=== PATIENT | female | born 2000 | race Caucasian/White ===

== ENCOUNTER 2022-11-18 10:21 | Outpatient (CLI) | payer OTHER, SELFPAY ==
[2022-11-18 13:26] LABS: Free T4 Free Thyroxine 1.25 ng/mL (0.78-2.19)
[2022-11-19 00:27] LABS: Hemoglobin A1C 5.6 % (<5.7)
[2022-11-21 12:34] LABS: DHEA-Sulfate 331 mcg/dL (51-321); Insulin Level Total 13.5 uIU/mL (<=19.6)
[2022-11-22 06:07] LABS: Prolactin 8.5 ng/mL (***)
[2022-11-22 13:11] LABS: Testosterone Total 46 ng/dL (2-45)
== END 2022-11-18 10:22 | disposition home or self-care (01) ==
LOC: ANHGOSHLAB 10:29
PROVIDERS: Visit Provider Nurse Practitioner
DX: N92.6 Irregular menstruation, unspecified (principal)
CPT/HCPCS: 36415; 82627; 83036; 83498; 83525; 84146; 84403; 84439; 84443

== ENCOUNTER 2024-01-11 10:05 | Emergency (ER) | payer OTHER, SELFPAY ==
[2024-01-11 10:20] VITALS: BP 140/84; PULSE 96; RESP 18; TEMP 36.7; O2SAT 98
--- NOTE | 2024-01-11 10:46 | ED.URI ---
HPI - URI/Sore Throat General Chief Complaint: Upper Respiratory Infection Stated Complaint: cough work note Time Seen by Provider: 01/11/24 10:46 Source: patient, RN notes reviewed and old records reviewed Mode of arrival: ambulatory Limitations: no limitations History of Present Illness HPI Narrative: 23-year-old female presents to the [facility] with complaints of a cough that started on Friday, 4 days. Has been taking allergy medication as well as Coricidin HBP Patient denies any fevers. Requesting a work note to return Friday Onset (ago): day(s) (4) Treatments prior to arrival: cold medicine Related Data Home Medications Medication Instructions Recorded Confirmed escitalopram oxalate 5 mg tablet 5 mg PO DAILY 01/11/24 01/11/24 norethindrone (contraceptive) 0.35 0.35 mg PO DAILY 01/11/24 01/11/24 mg tablet spironolactone 50 mg tablet 50 mg PO DAILY 01/11/24 01/11/24 Allergies Allergy/AdvReac Type Severity Reaction Status Date / Time No Known Allergies Allergy Verified 01/11/24 10:25 Review of Systems Review of Systems: All systems reviewed & are unremarkable except as noted in HPI and below Constitutional: Constitutional: Reports no additional constitutional complaints Eyes: Eyes: Reports no additional eye complaints ENT: Reports as per HPI and Reports nasal congestion Cardiovascular: Cardiovascular: Reports no additional cardiovascular complaints, Denies chest pain and Denies dyspnea Respiratory: Respiratory: Reports as per HPI, Denies chest congestion, Reports cough and Denies dyspnea Gastrointestinal: Gastrointestinal: Reports no additional gastrointestinal complaints, Denies abdominal pain, Denies nausea and Denies vomiting Musculoskeletal: Musculoskeletal: Reports no additional musculoskeletal complaints Integumentary/Breasts: Skin/Breast: Reports system reviewed and no additional complaints, except as docu Neurologic: Reports system reviewed and no additional complaints, except as documented Psychiatric: Psychiatric: Reports no additional psychiatric complaints Allergic/Immunologic: Allergic/Immunologic: Reports no additional allergic/immunologic complaints PMFSH Comments At the time of my signature, I reviewed and agree with the nursing past medical, surgical, social, and family history. There is no relevant family history pertinent to the patient complaint. Exam Const: General: cooperative, healthy appearing, comfortable, no acute distress, well developed, alert and well nourished Nutritional Appearance: well nourished and obese Orientation/consciousness: patient oriented x3 Limitations: no limitations HENMT: Head: normal to inspection Ears: hearing grossly normal bilaterally, external ears normal, TM's normal bilaterally, EAC's normal, mastoids normal and no periauricular adenopathy Face/Nose/Sinus: Normal external nose present, normal facial exam and face symmetric Face and sinus: normal facial exam and face symmetric Mouth: Yes Normal oral and palatal mucosa present, Yes lip normal and Yes tongue normal Throat: uvula midline, postnasal drainage and no uvular edema Eyes: General: appearance normal, both eyes and all related structures Alignment and Position: alignment normal Periorbital: periorbital findings normal Neck: Neck: normal visual inspection, full ROM, no lymphadenopathy and no meningeal signs Chest: Chest palpation & inspection: normal inspection of the chest Resp: Effort & Inspection: normal respiratory effort and able to speak in complete sentences Auscultation: clear to auscultation bilaterally, no crackles, no rales, no rhonchi and no wheezes Cardio: Rate: regular rate Rhythm: regular rhythm Skin: General skin exam: normal color and no rashes or lesions noted Lesions: no lesions Rashes: no rashes Trauma: no lacerations or abrasions Wounds: no wounds Neuro: General: patient oriented x3, gait normal, tone normal, moves all extremities and no meningeal
[2024-01-11 10:50] LABS: EDCOVIDSCREEN Negative (Negative); EDINFLUASCREEN Negative (Negative); EDINFLUBSCREEN Negative (Negative); EDSTREPNEGPOS1 Negative (Negative)
== END 2024-01-11 10:55 | disposition home or self-care (01) ==
PROVIDERS: Emergency Provider Nurse Practitioner
DX: J06.9 Acute upper respiratory infection, unspecified (principal); Z20.822 Contact with and (suspected) exposure to COVID-19; E28.2 Polycystic ovarian syndrome; F41.9 Anxiety disorder, unspecified
CPT/HCPCS: 87081; 87426; 87804; 87880; 99213; G0463

== ENCOUNTER 2024-01-29 10:47 | Outpatient (CLI) | payer OTHER, SELFPAY ==
[2024-01-29 19:59] LABS: Free T4 Free Thyroxine 1.16 ng/mL (0.78-2.19)
[2024-01-29 20:28] LABS: Thyroid Stimulating Hormone 0.502 uIU/mL (0.465-4.680)
[2024-01-29 21:28] LABS: Hemoglobin A1C 5.7 % (<5.7)
[2024-01-30 11:38] LABS: DHEA-Sulfate 373 mcg/dL (14-349); Prolactin 8.3 ng/mL
[2024-02-04 01:34] LABS: Testosterone Total 30 ng/dL (2-45)
== END 2024-01-29 10:48 | disposition home or self-care (01) ==
PROVIDERS: Visit Provider Nurse Practitioner Women's Health
DX: E28.2 Polycystic ovarian syndrome (principal)
CPT/HCPCS: 36415; 82627; 83036; 83498; 83525; 84146; 84403; 84439; 84443

== ENCOUNTER 2024-06-07 13:24 | Emergency (ER) | payer OTHER, SELFPAY ==
[2024-06-07 13:34] VITALS: BP 149/89; PULSE 90; RESP 18; TEMP 36.6; O2SAT 98
--- NOTE | 2024-06-07 13:34 | ED.URI ---
HPI - URI/Sore Throat General Chief Complaint: Upper Respiratory Infection Stated Complaint: sore throat / dizziness Time Seen by Provider: 06/07/24 13:34 Source: patient Mode of arrival: ambulatory Limitations: no limitations History of Present Illness HPI Narrative: 23-year-old female presents with complaint of cough, chest congestion, fatigue, body aches, chills for 5 days. Patient missed nursing clinicals today due to symptoms. Symptoms are improving. Taking dyfe-tch-itxxyrh medications and cough drops. No chest pain or shortness of breath. All systems reviewed and negative except as noted above. Related Data Home Medications ?Medication ?Instructions ?Recorded ?Confirmed ?Last Taken ?Type norethindrone (contraceptive) 0.35 0.35 mg PO DAILY 01/11/24 05/18/24 Unknown History mg tablet spironolactone 100 mg tablet 100 mg PO DAILY 02/13/24 05/18/24 Unknown History Allergies Allergy/AdvReac Type Severity Reaction Status Date / Time No Known Allergies Allergy Verified 06/07/24 13:32 Review of Systems Review of Systems: CONSTITUTIONAL: Denies fever, chills, or sweats. reports fatigue. EYES: Denies visual changes, redness, or discharge. ENT: Reports rhinorrhea, congestion. Denies sore throat, or otalgia. CARDIOVASCULAR: Denies chest pain, palpitations, or edema. RESPIRATORY: Reports cough. Denies dyspnea. GASTROINTESTINAL: Denies abdominal pain, nausea, vomiting, or diarrhea. GENITOURINARY: Denies dysuria or hematuria. SKIN: Denies rash or itching. MUSCULOSKELETAL: Denies back pain, joint pain, or myalgia. NEUROLOGIC: Denies headache, numbness, or weakness. PSYCHIATRIC: Denies anxiety or depression. All other systems reviewed are negative, except as documented in HPI. FOR[facility]LY [facility], [facility] Past Medical History Medical History (Updated 06/07/24 @ 14:09 by Lucero Mir NP) Migraine headache with aura Histoplasmosis PCOS (polycystic ovarian syndrome) Asthma Anxiety Allergies Family History Family History Mother Depression Anxiety Father Diabetes mellitus Sibling Depression Anxiety Grandparent Diabetes mellitus Heart problem Grandparent Diabetes mellitus Heart problem Social History Social History (Updated 05/03/24 @ 13:19 by Darling Garcia CMA) Smoking status: Never smoker Substance use: never Do You Feel Safe in your Home?: Yes Lack of Transportation: No Lack of Food: Never True Current Housing: I Have Housing Concerned About Future Housing: No Difficulty Paying Gas/Electric Bills: No Difficulty Paying for Meds: YES Currently Unemployed: No Education: High School Diploma/GED Difficulty w/ Childcare or Family Care: No Comments At time of signature, agree with nursing past medical, surgical, social and family history. There is no relevant family history pertinent to the presenting complaint. Exam Narrative: GENERAL: This is a well-nourished, well-developed patient, in no apparent distress. HEAD: normocephalic, atraumatic. EYES: PERRL. Sclera clear/white. Vision is grossly intact. EARS: External ears normal, auditory canals clear and without drainage, TMs normal without perforation. Hearing grossly intact. NOSE: External nose normal with clear nasal drainage, mild congestion THROAT: Mucous membranes moist, mild erythema postnasal drainage. No swelling or exudates. NECK: Neck supple, non-tender without lymphadenopathy, masses or thyromegaly. CARDIOVASCULAR: Regular rate and rhythm without murmurs, gallops, or rubs. RESPIRATORY: Clear to auscultation. Breath sounds equal bilaterally. No wheezes, rales, or rhonchi. SKIN: warm, Dry, intact with no suspicious lesions or rash, good texture and turgor. NEURO: awake, alert, and oriented to person, place and time. There were no obvious focal neurologic abnormalities. EXTREMITIES: No joint tenderness, effusion, or edema noted. Course Course Level of Care: Express Care Visit Vital Signs Vital signs: Reviewed MDM - URI/Sore Throat MDM Narrative Medical decision making narrative: positive COVID. Lungs clear to auscultation. No respiratory distress. Patient is alert, nontoxic. Recommend qraq-xsm-ypoxxci medications to treat viral symptoms. Please be advised this is a medical document. It is intended for ifoc-lq-sbii communication. It is written in medical language and may contain unfamiliar abbreviations or verbiage. Medical documents are intended to carry relevant information, facts as evident, and the clinical opinion of the practitioner at the time of the encounter. This report may have been done utilizing a voice recognition system. Attempts have been made to correct errors. However, there may be uncorrected grammatical, spelling, and recognition errors present. The file time of this note does not necessarily represent the time of service. Differential Diagnosis Differential diagnosis: Likely upper respiratory infection, sinusitis, viral infection and influenza Discharge Plan Discharge Clinical Impression: COVID-19 Patient Disposition: Home, Self-Care Condition: Stable Instructions: COVID-19 (Coronavirus Disease 2019) (ED) Additional Instructions: you were positive for COVID. COVID is a virus and symptoms may last 10-14 days. Take bzrb-aly-aetotdf medications to treat her symptoms such as DayQuil NyQuil cold and flu. Take ibuprofen every 6-8 hours as needed for pain and fever. Drink plenty of water and rest. See your doctor if symptoms are not improving. Patient Language: Tunisian Prescriptions: No Action norethindrone (contraceptive) 0.35 mg tablet 0.35 mg PO DAILY sumatriptan succinate [Imitrex] 50 mg tablet See Rx Instructions PO .COMPLEX Qty: 30 0RF Rx Instructions: Take 1 tablet at onset of headache; if no relief may repeat 1 tab after at least 2 hrs; max = 4 tabs/24 hr by mouth. venlafaxine 75 mg capsule,extended release 24hr 75 mg PO DAILY Qty: 30 2RF spironolactone 100 mg tablet 100 mg PO DAILY Follow-up/Referrals: Lizett Shields DO [Primary Care Provider] - Stand Alone Forms: Work/School Release IP Time of Disposition: 14:09
[2024-06-07 14:04] LABS: EDCOVIDSCREEN Positive (Negative)
[2024-06-07 14:04] LABS: EDSTREPNEGPOS1 Negative (Negative)
[2024-06-07 14:05] LABS: EDINFLUASCREEN Negative (Negative); EDINFLUBSCREEN Negative (Negative); EDSTREPNEGPOS1 Negative (Negative)
== END 2024-06-07 14:11 | disposition home or self-care (01) ==
PROVIDERS: Emergency Provider Nurse Practitioner Family; PCP Family Medicine
DX: U07.1 COVID-19 (principal); E28.2 Polycystic ovarian syndrome; J45.909 Unspecified asthma, uncomplicated
CPT/HCPCS: 87081; 87426; 87804; 87880; 99213; G0463

== ENCOUNTER 2025-02-11 11:39 | Outpatient (CLI) | payer OTHER, SELFPAY ==
--- OUTSIDE RECORDS SUMMARY | 2025-02-11 12:15 | XMS_ITS | Clinical Summary ---
Author Organization [facility] Address [address] [place] [address] Care Team Providers Care Steel Unloader Name Role Phone Dixie Olguin MD Primary Care Provid er Allergies No known active allergies Medications B2-mag citrate,oxide-f everfew (MIGRELIEF) 200-180-50 mg tablet TAKE 1 TWICE DAILY 07/17/2017 Active rizatriptan (MAXALT) 5 mg tablet TK 1 T PO ONCE PRN FOR MIGRAINE MAY REPEAT IN 2 HOURS IF NEEDED 4 10/01/2018 Active cetirizine (ZyrTEC) 10 mg tablet Take 10 mg by mouth daily Active medroxyPROGESTE Meño (Provera) 10 mg tabletIndicatio ns:PCOS (polycystic ovarian syndrome) Take 1 tablet (10 mg total) by mouth daily 10 tablet 2 01/11/2021 Active Active Problems Problem Noted Date Diagnosed Date Insomnia 03/20/2018 Disturbance in sleep behavior 03/04/2018 Tension headache 08/23/2016 History of PCOS 04/10/2016 Migraine without aura and responsive to treatmen t 04/10/2016 Analgesic rebound headache 04/10/2016 Abdominal pain 03/08/2016 Cephalalgia 03/08/2016 Mixed hypercholesterolemia and hypertriglyceride jimmy 03/08/2016 Dyslipidemia 09/09/2015 Childhood obesity 09/09/2015 Immunizations Immunization Administration Dates Next Due Influenza, Quadrivalent, Spl it, Preservative Free, Intramuscular 01/11/2021,04/16/2018 Social History Tobacco Use Types Packs/Day Years Used Date Smoking Tobacco: Never Smokeless Tobacco: Never PHQ-2 Answer Date Recorded PHQ-2 TOTAL SCORE 2 11/02/2020 Personal Safety Answer Date Recorded Getting School Help Needed Not on file 03/22 Comments Unknown Sex and Gender Information Value Date Recorded Sex Assigned at Not on file 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 Gender Identity Not on file Sexual Orientation Not on file Last Filed Vital Signs Vital Sign Reading Time Taken Comments Blood Pressure 128/74 01/11/2021 9:23 AM CDT Pulse 89 01/11/2021 9:23 AM CDT Temperature 36.7 C (98 F) 01/11/2021 9:23 AM CDT Respiratory Rate 20 01/11/2021 9:23 AM CDT Oxygen Saturation 97% 01/11/2021 9:23 AM CDT Inhaled Oxygen Concentration - - Weight 116 kg (255 lb 11.7 oz) 01/11/2021 9:23 A M CDT Height 169.4 cm (5' 6.69) 01/11/2021 9:23 AM CD T Body Mass Index 40.42 01/11/2021 9:23 AM CDT Plan of Treatment Not on file Insurance [facility] MEDICAID Care Teams Steel Unloader Relationship Specialty Start Date End Date Dixie Olguin MD [address] [place] [address] PCP - General 07/17/16
--- OUTSIDE RECORDS SUMMARY | 2025-02-11 12:15 | XMS_ITS | Clinical Summary ---
Author Organization [facility] Address [address] [place] [id number] Care Team Providers Care Payroll Accounting Manager Name Role Phone Dixie Olguin MD Primary Care Provide r Active Problems Problem Noted Date Diagnosed Date Neck pain 02/10/2019 Social History Tobacco Use Types Packs/Day Years Used Date Smoking Tobacco: Never Assessed Comments Unknown Sex and Gender Information Value Date Recorded Sex Assigned at Not on file Legal Sex Female 7:36 PM CDT Gender Identity Not on file Sexual Orientation Not on file Plan of Treatment Health Maintenance Due Date Last Done Comments Cervical Cancer Screening Pa p Smear (Age 21 to 29) Every 3 Years 2001 Cervical Cancer Screening 2001 Annual Physical 2004 HPV Vaccines (1 - 3-dose series) 2016 Meningococcal B Vaccine (1 o f 2 - Standard) 2017 Hepatitis C 08/16/2019 DTaP, Tdap and Td Vaccines ( 1 - Tdap) 2020 Hepatitis B Vaccines (1 of 3 - 19+ 3-dose series) 2020 COVID-19 Vaccine ( - 2024-2 6 season) 2024 Influenza Adult (#1) 2025 Hepatitis A Vaccines Aged Out No long er eligible based on patient's age to complete this topic Meningococcal Vaccine Aged Out No chava rashawn eligible based on patient's age to complete this topic Pneumococcal Vaccine: Pediat rics (0 to 5 Years) and At-Risk Patients (6 to 49 Years) Aged Out No longer eligible b ased on patient's age to complete this topic RSV Immunizations Under 20 Months Aged Out No longer eligible based on patient's age to complete this topic Insurance [employer] Care Teams Payroll Accounting Manager Relationship Specialty Start Date End Date Dixie Olguin MD [address] [place], [place] [address] [place], [place] [id number] PCP - General PEDIATRICS 02/09/19
--- OUTSIDE RECORDS SUMMARY | 2025-02-11 12:15 | XMS_ITS | Encounter Summary ---
Author Organization [facility] Address [address] [place] [address] Phone Care Team Providers Care Boring Mill Operator For Metal Name Role Phone Dixie Olguin MD Primary Care Provid er Encounter Details Date Type Department Care Team (Late st Contact Info) Description 04/03/2018 Telephone [facility] Neuro Sleep [address] [place] [address] 6[address] [place] [address] Ross Munson, [facility] Social History Tobacco Use Types Packs/Day Years Used Date Smoking Tobacco: Never Smokeless Tobacco: Never Comments Unknown Sex and Gender Information Value Date Recorded Sex Assigned at Not on file 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
--- OUTSIDE RECORDS SUMMARY | 2025-02-11 12:15 | XMS_ITS | Clinical Summary ---
Author Organization [facility] Address [address] [place] [address] Care Team Providers Care Creative Services Writer Name Role Phone iDxie Olguin MD Primary Care Provider Source Comments [facility],non-owned Affiliates and Associated Physician Practices is amultiple site organization consisting of ambulatory clinics and hospital sitesin [place], [place], [place] and [place]. This disclosure is being madepursuant to the Care Everywhere program and may not contain all information available regarding this patient. Last updated 17.[facility] Allergies No known active allergies Medications * Be aware that medications may not be up to date on this document. Alwaysverify current medications with the patient. NORLYDA 0.35 MG tablet Take 1 tablet by mouth at bedtime 9 Active loratadine (CLARITIN) 10 MG tablet Take 10 mg by mouth once daily Active multivitamin daily tablet Take 1 tablet by mouth daily with food Active ibuprofen (MOTRIN) 200 MG tabletIndicatio ns:Migraine Take 3 tabs around beginning of migraine and every 6 hours as needed, 3 days per week at most. 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 Gender Identity Not on file Sexual Orientation Not on file Last Filed Vital Signs Vital Sign Reading Time Taken Comments Blood Pressure 100/70 03/10/2019 8:20 AM ELECTRONIC CONSOLE DISPLAY OPERATOR Pulse 80 07/10/2018 12:05 PM CDT per pcp Temperature - - Respiratory Rate - - Oxygen Saturation - - Inhaled Oxygen Concentration - - Weight 109.8 kg (242 lb 1 oz) 03/10/2019 8:20 AM ELECTRONIC CONSOLE DISPLAY OPERATOR Height 164.3 cm (5' 4.69) 03/10/2019 8:20 AM CS T Body Mass Index 40.68 03/10/2019 8:20 AM ELECTRONIC CONSOLE DISPLAY OPERATOR Plan of Treatment Health Maintenance Due Date Last Done Comments HIV SCREENING 2016 HPV VACCINE (1 - 3-dose series) 2016 CHLAMYDIA/GONORRHEA SCREENING 2017 MENINGOCOCCAL (Group B) VACC INE SHARED DECISION-MAKING (1 of 2 - Standard) 2017 HEPATITIS C SCREENING 08/11/2019 DTAP/TDAP/TD VACCINES (1 - Tdap) 2020 HEPATITIS B VACCINE (1 of 3 - 19+ 3-dose series) 2020 DEPRESSION SCREENING 04/07/2024 COVID-19 VACCINE (1 - 2023-2 5 season) 2024 INFLUENZA VACCINE (#1) 2024 ZOSTER VACCINE (1 of 2) 08/16/2051 HIB VACCINE Aged Out No longer eligi ble based on patient's age to complete this topic MENINGOCOCCAL GROUPS A/C/Y/W VACCINE Aged Out No longer eligible b ased on patient's age to complete this topic PNEUMOCOCCAL VACCINE Aged Out No long er eligible based on patient's age to complete this topic Insurance [facility] Care Teams Creative Services Writer Relationship Specialty Start Date End Date Dixie Olguin MD [facility] [place] [address] PCP - General Pediatrics 09/16/18
[2025-02-11 12:53] LABS: Hematocrit 42.6 % (37.0-47.0); Hemoglobin 13.7 g/dL (12.0-15.0); Mean Corpuscular HGB Conc 32.2 g/dl (32-36); Mean Corpuscular Hemoglobin 27.9 pg (26-34); Mean Corpuscular Volume 86.8 fl (80-100); Platelet Count Result 296 k/mm3 (150-375); Red Blood Count 4.91 M/mm3 (4.2-5.4); White Blood Count 10.6 K/mm3 (4.5-10.0)
[2025-02-11 13:09] LABS: Alanine Aminotransferase 51 U/L (6-35); Albumin Level 4.5 g/dL (3.5-5.1); Alkaline Phosphatase 87 U/L (38-126); Anion Gap 9 mmol/L (4-12); Aspartate Amino Transferase 39 U/L (14-36); Bilirubin,Total 0.5 mg/dL (0.2-1.3); Blood Urea Nitrogen 12 mg/dL (7-17); Calcium 9.1 mg/dL (8.4-10.2); Carbon Dioxide 26 mmol/L (22-30); Chloride 102 mmol/L (98-107); Cholesterol 161 mg/dL (0-200); Estimated Glomerular Filt Rate > 60; Glucose 96 mg/dL (65-110); HDL Direct 44 mg/dL; Potassium 4.6 mmol/L (3.4-5.0); Sodium 137 mmol/L (137-145); Total Protein 8.0 g/dL (6.3-8.2); Triglycerides 164 mg/dL (<150)
[2025-02-11 13:40] LABS: Free T4 Free Thyroxine 0.99 ng/dL (0.78-2.19)
[2025-02-11 13:53] LABS: Thyroid Stimulating Hormone Reflex 0.660 uIU/mL (0.465-4.68)
[2025-02-11 14:00] LABS: Hemoglobin A1C 5.8 % (<5.7)
[2025-02-11 14:03] LABS: Vitamin B12 237.0 pg/mL (239-931)
== END 2025-02-11 11:40 | disposition home or self-care (01) ==
LOC: ANHGOSHLAB 11:40
PROVIDERS: PCP Family Medicine
DX: E28.2 Polycystic ovarian syndrome (principal)
CPT/HCPCS: 36415; 80053; 80061; 82306; 82607; 83036; 84439; 84443; 85027